=== PATIENT | female | born 1985 | race Caucasian/White ===

== ENCOUNTER 2018-03-31 07:34 | Inpatient (IN) ==
--- NOTE | 2018-03-31 07:56 | PROVIDER DOCUMENTATION ---
HPI-General Adult - General Chief Complaint: Post Op Complaint Stated Complaint: POST OP COMPLAINT Time Seen by Provider: 03/31/18 07:40 Source: patient Allergies/Adverse Reactions: Patient Allergies Allergy/AdvReac Type Severity Reaction Status Date / Time hydromorphone Allergy Intermediate HEADACHE Verified 03/31/18 07:45 oxycodone Allergy Intermediate HEADACHE Verified 03/31/18 07:45 Home Medications: Home Medication List Medication Instructions Recorded Confirmed Last Taken Type Atorvastatin Calcium [Lipitor] 10 mg PO DAILY 01/10/17 01/11/17 01/10/17 07:30 History 10 Cetirizine HCl [Zyrtec] 5 mg PO DAILY 01/10/17 01/11/17 01/10/17 07:30 History 5 Hydrocodone/Acetaminophen [[place] 1 each PO TID PRN PRN #15 tablet 01/10/1701/11 Unknown Rx 7.5-325 Tablet] Montelukast Sodium [Singulair] 10 mg PO DAILY 01/10/17 01/11/17 01/09/17 07:30 History 10 Norgestimate-Ethinyl Estradiol 1 each PO DAILY 01/10/17 01/11/17 01/10/17 07:30 History [Ortho Tri-Cyclen] 1 Omeprazole [Prilosec] 40 mg PO DAILY 01/10/17 01/11/17 01/10/17 07:30 History 40 Ondansetron HCl [Zofran] 4 mg PO TID PRN PRN #15 tablet 01/10/17 01/11/17 Unknown Rx Sulfamethoxazole/Trimethoprim 1 each PO BID #6 tablet 01/10/17 01/11/17 Unknown Rx [Bactrim Ds Tablet] Hydrocodone/APAP 7.5 mg/325 mg 1 ea PO Q6H PRN PRN #20 tab 08/14/17 Unknown Rx [[place]-7.5] Nitrofurantoin Monohyd/M-Cryst 100 mg PO BID #14 cap 08/14/17 Unknown Rx [Macrobid 100 mg Capsule] Tamsulosin [Flomax] 0.4 mg PO QHS #20 cap 08/14/17 Unknown Rx - History of Present Illness -Gen Adult Nature of Presenting Problems: Patient is a 32 year old white female with history of kidney stones requiring lithotripsy and tobacco abuse who is S/P tonsillectomy 2 days ago at [facility] surgery [facility] who presents with generalized weakness,sob, and muscle aching since surgery. Denies fever,dysuria,productive cough, or chest pain. Review of Systems - Adult - REVIEW OF SYSTEMS - ADULT Constitutional: reports: see HPI, fatique. denies: chills, fever Eyes: denies: discharge, blurred vision Ears, Nose, Mouth & Throat: reports: see HPI, other (sore throat due to recent tonsillectomy) Cardiovascular: denies: chest pain Respiratory: reports: see HPI, shortness of breath. denies: cough, excessive sputum production, pleurisy Gastrointestinal: denies: abdominal pain, constipation, diarrhea, vomiting Genitourinary: denies: dysuria Musculoskeletal: reports: see HPI, muscle aches Integumentary: denies: rash Neurological: reports: see HPI. denies: numbness, paresthesia Psychiatric: reports: anxiety Endocrine: reports: no symptoms reported Hematologic/Lymphatic: reports: no symptoms reported Allergic/Immunologic: reports: no symptoms reported All Other Systems: Reviewed and Negative Past History - Adult - PAST MEDICAL HISTORY-ADULT Review of Records: reports: Old Records Reviewed, Nursing Assessment Review, Medications Reviewed, Social history reviewed & non-contributory. Major Childhood Illnesses: reports: denies history Cardiovascular: reports: denies history, hyperlipidemia Respiratory: reports: denies history Gastrointestinal: reports: denies history Genitourinary: reports: kidney stones Musculoskeletal: reports: denies history Neurological: reports: denies history - PRIOR SURGERIES/PROCEDURES Surgical/Procedure History: reports: other (stents placed in kidney) - IMMUNIZATION STATUS Childhood Immunizations: See Nurse Assessment Flu Vaccine: See Nurse Assessment - FAMILY HISTORY Family History: reviewed, not pertinent - SOCIAL HISTORY Smoking: cigarettes, less than 1 pack/day Substance Use: denies Alcohol Use Frequency: occasionally Living Situation: family Physical Exam-General - CONSTITUTIONAL General Appearance: alert, obese, other (no acute distress, ambulatory) - EYES Eyes: other (clear, nonicteric) - HEAD, EARS, NOSE, MOUTH & THROAT HENMT: moist mucous membranes, other (white eschar over posterior pharyns, intact airway, no stridor) - NECK Neck: non-tender, full range of motion, supple - RESPIRATORY Respiratory: lungs clear, no pleuratic chest pain, no respiratory distress, no accessory muscle use - CARDIOVASCULAR Cardiovascular: regular rate, rhythm - GASTROINTESTINAL (ABDOMEN) Abdominal Exam: non tender, soft - LYMPHATIC Lymphatic: no adenopathy - MUSCULOSKELETAL Back Exam: normal inspection, no CVA tenderness Extremity: normal range of motion, tenderness (diffuse muscle tenderness in all extremities), other (no cords, no homans) Peripheral Pulses: radial (R): 2+, radial (L): 2+, dorsalis-pedis (R): 2+, dorsalis-pedis (L): 2+ - SKIN Integumentary: normal color, normal turgor, warm/dry - NEUROLOGIC Neurologic: grossly normal, no motor/sensory deficits - PSYCHIATRIC Psych/Mental Status: anxious Progress - PLAN OF CARE/RESULTS Progress/Plan/Lab Results: Vital Signs - 8 hr 03/31/18 07:36 Temperature 98.3 F Pulse Rate 91 H Respiratory Rate 19 Blood Pressure 132/85 O2 Sat by Pulse Oximetry 93 L Orders Category Date Time Status Urine Preg [ED: Urine Bedside] ORDERED Care 03/31/18 07:54 Active CBC WITH ELECTRONIC DIFF [HEME] Stat Lab 03/31/18 07:54 Ordered CK PROFILE [SP CHEM] Stat Lab 03/31/18 07:54 Ordered CMP [COMPREHENSIVE METABOLIC PANEL] [CHEM] Stat Lab 03/31/18 07:54 Uncollected Result Diagrams: 03/31/18 08:05 03/31/18 08:05 - XRAY 1 XRAY Study: Chest XRAY Interpretation: bilateral infiltrates - CONSULTS/PCP/HOSPITALIST Notification #1 *Consult/PCP/Hospitalist*: DANNIELLE Lynn for Dr. Ocasio Time Discussed: 09:50 Consult Disposition: Admit Departure - Departure Date of Disposition Decision: 03/31/18 Time of Disposition Decision: 09:47 DIAGNOSIS: Bilateral pulmonary infiltrates on chest x-ray Urinary tract infection Qualifiers: Urinary tract infection type: site unspecified Hematuria presence: with hematuria Qualified Code(s): N39.0 - Urinary tract infection, site not specified Leukocytosis Qualifiers: Leukocytosis type: unspecified Qualified Code(s): D72.829 - Elevated white blood cell count, unspecified Pneumonia Qualifiers: Pneumonia type: due to unspecified organism Laterality: bilateral Lung location : unspecified part of lung Qualified Code(s): J18.9 - Pneumonia, unspecified organism Disposition: ADMITTED INPATIENT 09 Certified Medical Emergency: Emergent Condition: Stable Referrals and Follow-Ups: Vivian Chen MD [Primary Care Provider] - - Critical Care Note This patient required my direct & personal management of CC.: No Attestation - Physician/ HANNA Attestation Patient care was provided by Advanced Practice Provider:: No The physician spent face to face time with patient:: Yes Advanced Practice Provider documentation review:: Supervising physician onsite and consulted in the evaluation and care of this patient. The physician did have a face to face encounter with the patient.
[2018-03-31] MEDS ORDERED: DECADRON IM ONE (08:04)
[2018-03-31] MEDS ORDERED: TORADOL IM ONE (08:04)
[2018-03-31] MEDS ORDERED: TORADOL IV ONE (08:06)
[2018-03-31] MEDS ORDERED: DECADRON IV ONE (08:07)
[2018-03-31 08:14] LABS: BASO# 0.03 X1000 (0.0-0.2); BASO% 0.2 % (0.0-0.8); EOS# 0.12 X1000 (0.0-0.7); EOS% 0.7 % (0.0-10.0); HEMATOCRIT 35.9 % (37.0-47.0); HEMOGLOBIN 11.5 g/dL (12.0-16.0); IMM GRAN% 0.6 % (0.0-0.5); LYMPH# 3.27 X1000 (1.2-3.4); LYMPH% 18.3 % (20.5-51.1); MCH 27.3 PG (27-31); MCV 85.1 FL (81-99); MONO# 0.91 X1000 (0.11-0.59); MONO% 5.1 % (1.7-9.3); MPV 10.3 FL (7.4-10.4); NEUT# 13.42 X1000 (1.4-6.5); NEUT% 75.1 % (42.2-75.2); PLT 403 X1000 (130-400); RBC 4.22 XMIL (4.2-5.4); RDW 13.8 % (11.5-14.5); WBC 17.85 X1000 (4.8-10.8)
[2018-03-31 08:34] LABS: AGAP 15; ALB/GLOB RATIO 1.6; ALBUMIN 4.2 g/dL (3.5-5.0); ALKALINE PHOSPHATASE 132 U/L (32-104); BUN 7 mg/dL (8-22); CALCIUM 8.7 mg/dL (8.8-10.2); CHLORIDE 98 mmol/L (98-107); COSMO 272; CREATININE 0.4 mg/dL (0.5-0.9); ESTIMATED GFR > 60; GLUCOSE 111 mg/dL (70-104); GOT 18 U/L (10-30); GPT 19 U/L (10-36); POTASSIUM 4.1 mmol/L (3.5-5.1); SODIUM 137 mmol/L (136-145); TCO2 24 mmol/L (25-35); TOTAL PROTEIN 6.8 g/dL (6.3-8.3)
[2018-03-31 08:53] LABS: CK INDEX 1.6 (0.0-2.5); CK-MB 2.85 ng/mL (0.0-5.0)
[2018-03-31 09:09] LABS: URINE SOURCE CLEAN CATCH
[2018-03-31 09:18] LABS: BILIRUBIN URINE NEGATIVE (NEGATIVE); BLOOD URINE MODERATE (NEGATIVE); COLOR YELLOW; GLUCOSE URINE NEGATIVE (NEGATIVE); KETONE URINE NEGATIVE (NEGATIVE); LEUKOCYTES URINE LARGE (NEGATIVE); NITRITE URINE POSITIVE (NEGATIVE); PROTEIN URINE 30 mg/dL (NEGATIVE); SP GRAVITY URINE 1.026; TURBIDITY URINE HAZY (CLEAR); UROBILINOGEN URINE NORMAL (NORMAL)
[2018-03-31] MEDS ORDERED: ROCEPHIN 1 GM in NS 50 ML IV ONE (09:19)
[2018-03-31 09:21] LABS: UR EPITHELIAL CELLS >10 /HPF (<10); URINE BACTERIA 4+ /HPF; URINE RBC 20-40 /HPF (<10); URINE WBC TNTC /HPF (<10)
[2018-03-31 09:28] LABS: URINE CASTS NONE SEEN
--- NOTE | 2018-03-31 09:45 | Diag Imaging Result Doc PS360 ---
CHEST-2 VIEWS - 03/31/2018 INDICATION: sob COMPARISON: None FINDINGS: Lung volumes are severely low. There are patchy infiltrates and possibly atelectasis in the lung bases bilaterally. Heart size and pulmonary vascularity is normal. IMPRESSION: Severely low lung volumes. Nonspecific patchy infiltrates and/or atelectasis in the lung bases. Electronically signed by Syd Sanders 03/31/2018 9:43 AM
[2018-03-31] MEDS ORDERED: ZITHROMAX 500 MG/NS 500 MG/250 ML IVPB IV ONE (09:54)
[2018-03-31] MEDS ORDERED: DUONEB (A & A) INH PRN (10:30)
[2018-03-31] MEDS ORDERED: VANCOMYCIN IV PER PHARMACY MISC SCH (10:45)
[2018-03-31] MEDS: NS 1,000 ML IV SCH (10:52)
[2018-03-31] MEDS: MAXIPIME 1 GM in NS 50 ML IV SCH ×2 (11:12→22:59)
[2018-03-31] MEDS: ZOFRAN IV PRN ×4 (11:36→22:59)
[2018-03-31] MEDS: PROTONIX IV SCH (11:37)
[2018-03-31] MEDS ORDERED: NORCO-7.5 PO PRN (12:23)
[2018-03-31] MEDS: HYDROCODONE/APAP 7.5-325/15 ML PO SCH ×2 (13:13→18:46)
[2018-03-31] MEDS ORDERED: MORPHINE IV ONE (13:43)
[2018-03-31] MEDS: DUONEB (A & A) INH SCH ×2 (15:39→21:51)
--- NOTE | 2018-03-31 15:52 | Diag Imaging Result Doc PS360 ---
CT RENAL STONE SEARCH - 03/31/2018 INDICATION: R/O kidney stone COMPARISON: 01/15/2017 FINDINGS: There are couple of nonobstructing stones in the left kidney measuring 2 mm. No hydronephrosis or hydroureter. No ureteral stones. Urinary bladder, uterus, ovaries, and rectum are normal. No bowel obstruction or inflammation. Bones are intact. IMPRESSION: Tiny nonobstructing left renal stones. This exam was performed using automated exposure control, adjustment of mA or kV according to patient size, and/or use of iterative reconstruction technique Electronically signed by Syd Sanders 03/31/2018 3:50 PM
[2018-03-31] MEDS: VANCOMYCIN 1,800 MG in NS 250 ML IV SCH (17:20)
[2018-03-31] MEDS: MORPHINE IV PRN ×2 (17:56→20:38)
[2018-03-31] MEDS ORDERED: SODIUM CHLORIDE 0.9% INJ PRN (23:23)
[2018-03-31] MEDS: PHENERGAN IV PRN (23:54)
[2018-04-01] MEDS: VANCOMYCIN 1,800 MG in NS 250 ML IV SCH (03:07)
[2018-04-01] MEDS: NS 1,000 ML IV SCH ×3 (03:07→19:11)
[2018-04-01] MEDS: MORPHINE IV PRN ×5 (03:07→20:45)
[2018-04-01] MEDS: ZOFRAN IV PRN ×3 (03:07→20:47)
[2018-04-01] MEDS: DUONEB (A & A) INH SCH ×4 (03:22→21:43)
--- NOTE | 2018-04-01 03:55 | HISTORY AND PHYSICAL ---
PRIMARY CARE PHYSICIAN: [facility]. CHIEF COMPLAINT: Weakness. Throat pain. HISTORY OF PRESENT ILLNESS: Mrs. Cabrera is a 32-year-old, female with a history of recurrent tonsillitis status post tonsillectomy by Dr. Blakely [id number] on 03/29/2018. After surgery she had typical postoperative pain that was fairly well controlled with pain medication. However, she started to become more weak yesterday. She did have a few episodes of nausea and vomiting and this morning had difficulty getting out of bed because of the weakness and is also more short of breath with a cough. She denies any hemoptysis. No chest pain. She denies any dysuria, diarrhea, or lower extremity edema. In the ER, she was noted to have a white count of 18,000. Chemistry was largely unremarkable. She does have quite a bit of bacteruria, however denies any symptoms. Most interestingly, she has bilateral patchy infiltrates and atelectasis. Given the above, she will need admission for pneumonia. PAST MEDICAL HISTORY: 1. Recurrent tonsillitis status post tonsillectomy on 11/26/[address] Blakely. 2. Recurrent kidney stones and urinary tract infections. Status post multiple lithotripsies. 3. Nicotine dependence. 4. Obesity. PAST SURGICAL HISTORY: Recent tonsillectomy, cervix biopsy, multiple lithotripsies and one cystoscopy with stent placement. SOCIAL HISTORY: She smokes about [id number]-a-day. She has not smoked since surgery. She denies alcohol or drug use. She is a title i teacher. She is . She has no children. FAMILY HISTORY: Both parents are alive. Father has significant coronary artery disease and has had a pacemaker and AICD placed. Mother has no medical problems. REVIEW OF SYSTEMS: A 14 point review of systems obtained and found to be negative with the exception of the HPI. HOME MEDICATIONS: Currently being compiled. ALLERGIES: DILAUDID. OXYCODONE. PHYSICAL EXAM: VITAL SIGNS: Blood pressure 132/85, heart rate 91, respiratory rate 18. O2 saturation 93% on room air. Temperature is 98.3 degrees Fahrenheit. GENERAL: This is an obese, female, lying on hospital bed in no acute distress. NEUROLOGIC: She is awake, alert and oriented. No focal deficits. HEENT: Head: Atraumatic and normocephalic. Eyes: Pupils are equal, round and reactive to light. Oral mucosa is moist. Posterior oropharynx with post surgical eschar to both tonsils. No obvious exudates. No airway compromise. No stridor. NECK: There is no JVD. CHEST: Diminished with faint crackles bilaterally. CARDIOVASCULAR: Regular rate and rhythm. S1, S2 is noted. GASTROINTESTINAL: Soft, nontender, nondistended. Bowel sounds are active. EXTREMITIES: No edema. Pulses are 2+ bilaterally. DIAGNOSTIC DATA: Chest x-ray shows bilateral basilar infiltrates and atelectasis. WBC 17.85, hemoglobin 11.5, hematocrit 35.9 and platelet count 403,000. Sodium 137, potassium 4.1, chloride 98, CO2 24. Anion gap 15. BUN 7, creatinine 0.4, glucose 111, calcium 8.7. AST 18, ALT 19, alkaline phosphatase 132. CK 178. Lactic acid 0.9. UA shows significant bacteruria. IMPRESSION AND PLAN: 1. Pneumonia: We have ordered blood cultures and sputum cultures as well as throat cultures and will increase the spectrum of antibiotics with cefepime with vancomycin. We will continue breathing treatments and aggressive pulmonary toilet. 2. Status post tonsillectomy: Strep, flu and throat cultures have all been ordered. We will continue antibiotics and liquid diet. 3. Asymptomatic bacteruria: While she does not have any symptoms, the antibiotics we are giving her for pneumonia should cover any urinary tract infection adequately. Cultures are pending. 4. Gastroesophageal reflux disease: We have added IV Protonix. 5. Deep venous thrombosis prophylaxis with SCDs given recent surgery. Further recommendations to follow. Dictated by MOO Ferrell for Xavi Sepulveda MD cc: MOO Ferrell MD George H. Godwin, MD
[2018-04-01 05:50] LABS: BASO# 0.03 X1000 (0.0-0.2); BASO% 0.2 % (0.0-0.8); EOS# 0.06 X1000 (0.0-0.7); EOS% 0.4 % (0.0-10.0); HEMATOCRIT 32.7 % (37.0-47.0); HEMOGLOBIN 10.6 g/dL (12.0-16.0); IMM GRAN# 0.07 X1000 (0.0-0.04); IMM GRAN% 0.4 % (0.0-0.5); LYMPH% 24.4 % (20.5-51.1); MCH 27.7 PG (27-31); MCHC 32.4 g/dL (33-37); MCV 85.6 FL (81-99); MONO# 0.86 X1000 (0.11-0.59); MONO% 5.1 % (1.7-9.3); MPV 10.3 FL (7.4-10.4); NEUT% 69.5 % (42.2-75.2); PLT 399 X1000 (130-400); RBC 3.82 XMIL (4.2-5.4); RDW 13.4 % (11.5-14.5); WBC 16.82 X1000 (4.8-10.8)
[2018-04-01 06:26] LABS: AGAP 11; BUN 8 mg/dL (8-22); CHLORIDE 104 mmol/L (98-107); COSMO 278; CREATININE 0.5 mg/dL (0.5-0.9); ESTIMATED GFR > 60; GLUCOSE 102 mg/dL (70-104); POTASSIUM 3.9 mmol/L (3.5-5.1); SODIUM 140 mmol/L (136-145); TCO2 25 mmol/L (25-35)
[2018-04-01] MEDS: HYDROCODONE/APAP 7.5-325/15 ML PO SCH ×3 (08:19→17:17)
[2018-04-01 09:08] LABS: ALB/GLOB RATIO 1.2; ALBUMIN 3.5 g/dL (3.5-5.0); DIRECT BILIRUBIN 0.1 mg/dL (0.00-0.20); TOTAL BILIRUBIN 0.23 mg/dL (0.20-1.00); TOTAL PROTEIN 6.5 g/dL (6.3-8.3)
[2018-04-01] MEDS: SODIUM CHLORIDE 0.9% INJ SCH (10:44)
[2018-04-01] MEDS: PROTONIX IV SCH (10:44)
[2018-04-01] MEDS: MAXIPIME 1 GM in NS 50 ML IV SCH ×2 (10:44→23:40)
--- NOTE | 2018-04-01 11:41 | PROGRESS NOTE ---
DATE: 04/01/2018 SUBJECTIVE: Patient is still complaining of back pain and lower abdominal pain. She is still complaining also of throat pain since she is status post tonsillectomy. She does have a urinary tract infection with a positive culture that showed gram-negative rods. Initially she was placed on vancomycin and cefepime. I will stop the vancomycin, and I will continue with the cefepime given the urine culture results. I will wait for the sensitivity. OBJECTIVE: Vital Signs: Temperature 98.8 degrees, pulse 83, respiratory rate 19, blood pressure 146/93, oxygen saturation 93 on room air. HEENT: Head normocephalic, no trauma. PERRLA. Mouth: She does have scar tissue that is whitish and painful to palpation, some redness around the level of the tonsillar area/throat. Neck: Supple. No JVD. No masses. Central trachea. Chest: Clear to auscultation. No wheezing. No rales. Abdomen: Soft. Mild tenderness to palpation at the level of the suprapubic area. Back: Slightly tender to palpation at the level of the lower back. Extremities: No edema. No clubbing. No cyanosis. Neurological: The patient is alert and oriented x3. No focal deficits. DIAGNOSTIC STUDIES: WBC 16.8, hemoglobin 10.6, hematocrit 32.7, platelets 399,000. Sodium 140, potassium 3.9, chloride 104, bicarbonate 25, BUN 8, creatinine 0.5, glucose 102, calcium 9, AST 13, ALT 16, alkaline phosphatase 116. Lipase level is 12. Albumin 3.5. Urine culture positive for gram-negative rods. ASSESSMENT AND PLAN: 1. Urinary tract infection. As per the patient, she has been having frequency, and the urine has a strong smell. We have a positive culture that showed gram-negative rods. She does not have any burning sensation, though, but she says she is having suprapubic pain and frequency. We will treat it. We did a CT scan yesterday to rule out a kidney stone. That showed tiny nonobstructing left renal stones measuring about 2 mm, but did not show hydronephrosis or hydroureter. 2. Status post tonsillectomy. Streptococcus, flu, and throat culture have been ordered. Everything has been negative so far. 3. Possible right lower lobe pneumonia. I do believe this is more atelectasis than infiltrate. She is not having any respiratory distress or coughing nor has been coughing during my evaluation these 2 days. As per the mother when she does any kind of physical activity, sometimes she is coughing, but not right now. We will continue to monitor. Continue with incentive spirometer. 4. Gastroesophageal reflux disease (GERD). Continue with proton pump inhibitors (PPIs). 5. Deep vein thrombosis (DVT) prophylaxis with sequential compression devices (SCDs) given her recent surgery. 6. Leukocytosis. This patient has a urinary tract infection, and recently she had a tonsillectomy. Also she received some steroids upon admission so probably this is a combination of those 3 factors. Overall, I feel this patient is doing better. I will wait for the final sensitivity. I believe she can be discharged in the next 24 hours with p.o. antibiotics. cc: Xavi Sepulveda MD
[2018-04-01] MEDS: PHENERGAN IV PRN (23:40)
[2018-04-02] MEDS: MORPHINE IV PRN ×3 (00:30→20:49)
[2018-04-02] MEDS: DUONEB (A & A) INH SCH ×4 (03:13→20:59)
[2018-04-02] MEDS: NS 1,000 ML IV SCH ×3 (03:53→18:44)
[2018-04-02] MEDS: PHENERGAN IV PRN ×2 (05:31→20:49)
[2018-04-02 06:12] LABS: BASO# 0.03 X1000 (0.0-0.2); BASO% 0.2 % (0.0-0.8); EOS# 0.13 X1000 (0.0-0.7); HEMATOCRIT 34.8 % (37.0-47.0); IMM GRAN# 0.13 X1000 (0.0-0.04); LYMPH# 3.73 X1000 (1.2-3.4); LYMPH% 29.7 % (20.5-51.1); MCH 27.1 PG (27-31); MCHC 31.6 g/dL (33-37); MCV 85.7 FL (81-99); MONO# 0.63 X1000 (0.11-0.59); MPV 10.3 FL (7.4-10.4); NEUT# 7.93 X1000 (1.4-6.5); NEUT% 63.1 % (42.2-75.2); PLT 380 X1000 (130-400); RBC 4.06 XMIL (4.2-5.4); RDW 13.6 % (11.5-14.5); WBC 12.58 X1000 (4.8-10.8)
[2018-04-02 06:36] LABS: AGAP 12; BUN 7 mg/dL (8-22); CALCIUM 8.4 mg/dL (8.8-10.2); CHLORIDE 102 mmol/L (98-107); COSMO 274; CREATININE 0.5 mg/dL (0.5-0.9); ESTIMATED GFR > 60; GLUCOSE 97 mg/dL (70-104); POTASSIUM 3.9 mmol/L (3.5-5.1); SODIUM 138 mmol/L (136-145); TCO2 24 mmol/L (25-35)
--- NOTE | 2018-04-02 07:59 | Diag Imaging Result Doc PS360 ---
CHEST-PORTABLE - 04/02/2018 INDICATION: Dyspnea COMPARISON: 03/31/2018 FINDINGS: There is moderate worsening in the right basilar infiltrate/atelectasis. Lung volumes remain critically low. There is some hazy infiltrate or atelectasis in the left lung base as well. Stable cardiomegaly and pulmonary vascular congestion. IMPRESSION: Worsening infiltrate or atelectasis in the right lung base. Electronically signed by Syd Sanders 04/02/2018 7:57 AM
[2018-04-02] MEDS: HYDROCODONE/APAP 7.5-325/15 ML PO SCH ×3 (10:00→16:55)
[2018-04-02] MEDS: MAXIPIME 1 GM in NS 50 ML IV SCH ×2 (10:00→20:45)
[2018-04-02] MEDS: PROTONIX IV SCH (10:00)
[2018-04-02] MEDS: SODIUM CHLORIDE 0.9% INJ SCH (10:00)
[2018-04-02] MEDS: ZOFRAN IV PRN ×2 (10:01→13:44)
--- NOTE | 2018-04-02 14:52 | PROGRESS NOTE ---
DATE: 04/02/2018 SUBJECTIVE: Patient reports feeling fine. No sore throat noted. No fever or chills. OBJECTIVE: Vital Signs: Temperature 98.3 degrees, heart rate 94, respiratory rate 16, blood pressure 138/90, O2 saturation 95% on room air. General Examination: This is a 32-year-old female, lying in bed, in no acute distress. Cardiovascular: S1, S2 heard. No murmurs, gallops, or rubs. Regular rate and rhythm. Respiratory: Clear bilaterally to auscultation. No work of breathing or using accessory muscles. Abdomen: Soft, mildly tender to palpation in the suprapubic area. No signs of peritoneal irritation. Bowel sounds present. No organomegaly. Back: In the left lower back, there is questionable CVA tenderness. Extremities: No clubbing, cyanosis, or edema. Peripheral pulses present in both legs. Neurological: Patient alert oriented x3. Moves 4 extremities. DIAGNOSTIC STUDIES: White cell count 12.58, hemoglobin 11.0, hematocrit 34.8, platelets 380,000. Normal BMP. Urine culture is positive for gram-negative rods. ASSESSMENT AND PLAN: 1. Urinary tract infection. Urine culture is still showing gram-negative rods, but the final sensitivity is not back yet. At this point, we will continue with cefepime. The patient reports still mild frequency and suprapubic pain, but definitely getting better. The CT of both kidneys shows tiny nonobstructing stones of 2 mm. I asked patient if she wants to be seen by a urologist here, considering her recurring history of kidney stones, or if she prefers to be seen as an outpatient. She preferred outpatient visit. We will continue with the same management. 2. Right lower lobe pneumonia that was confirmed with the x-ray from today. We will continue with cefepime that is treating this infection. White cell count is getting better. We will continue with the same management. She is not requiring any oxygen supplementation. 3. Gastroesophageal reflux disease. Patient is on Protonix. We will continue with the same management. DISPOSITION: I think if we are able to have the final results of urine culture tomorrow, then we can discharge this patient home. cc: Erick Vance MD
[2018-04-03] MEDS: PHENERGAN IV PRN (00:42)
[2018-04-03] MEDS: MORPHINE IV PRN ×5 (00:43→20:42)
[2018-04-03] MEDS: MAXIPIME 1 GM in NS 50 ML IV SCH ×2 (01:57→10:24)
[2018-04-03] MEDS: DUONEB (A & A) INH SCH ×4 (03:15→20:02)
[2018-04-03] MEDS: ZOFRAN IV PRN ×2 (05:47→20:43)
[2018-04-03 06:14] LABS: BASO# 0.03 X1000 (0.0-0.2); BASO% 0.3 % (0.0-0.8); EOS# 0.24 X1000 (0.0-0.7); HEMATOCRIT 35.2 % (37.0-47.0); IMM GRAN# 0.15 X1000 (0.0-0.04); IMM GRAN% 1.3 % (0.0-0.5); LYMPH# 3.64 X1000 (1.2-3.4); LYMPH% 30.7 % (20.5-51.1); MCH 27.2 PG (27-31); MCHC 31.3 g/dL (33-37); MCV 86.9 FL (81-99); MONO# 0.59 X1000 (0.11-0.59); MPV 10.1 FL (7.4-10.4); NEUT% 60.7 % (42.2-75.2); PLT 382 X1000 (130-400); RBC 4.05 XMIL (4.2-5.4); RDW 13.5 % (11.5-14.5); WBC 11.85 X1000 (4.8-10.8)
[2018-04-03 06:46] LABS: AGAP 12; BUN 10 mg/dL (8-22); CALCIUM 7.7 mg/dL (8.8-10.2); CHLORIDE 104 mmol/L (98-107); COSMO 277; CREATININE 0.5 mg/dL (0.5-0.9); ESTIMATED GFR > 60; GLUCOSE 100 mg/dL (70-104); POTASSIUM 4.2 mmol/L (3.5-5.1); SODIUM 139 mmol/L (136-145); TCO2 23 mmol/L (25-35)
--- NOTE | 2018-04-03 07:26 | Diag Imaging Result Doc PS360 ---
EXAM: CHEST-PORTABLE 04/03/2018 HISTORY: Dyspnea TECHNIQUE: AP portable at 0627 COMMENT: There is bilateral platelike atelectasis particularly over the right lower lobe. There is slightly better pneumatization of the right lower lobe than on 04/02/2018. The lungs are less well-expanded than on 03/31/2018. IMPRESSION: Bilateral subsegmental atelectasis. Electronically signed by Philippe Treadwell 04/03/2018 7:23 AM
[2018-04-03] MEDS: NS 1,000 ML IV SCH (07:45)
[2018-04-03] MEDS: HYDROCODONE/APAP 7.5-325/15 ML PO SCH ×3 (09:15→17:45)
[2018-04-03] MEDS: SODIUM CHLORIDE 0.9% INJ SCH (10:25)
[2018-04-03] MEDS: PROTONIX IV SCH (10:25)
--- NOTE | 2018-04-03 14:29 | PROGRESS NOTE ---
DATE: 04/03/2018 SUBJECTIVE: Patient reports feeling fine although she reports some intermittent pain in the lower back. OBJECTIVE: Vital Signs: Temperature 98.6 degrees, heart rate 82, respiratory rate 16, blood pressure 126/90, and O2 saturation 94% on room air. General: This is a 32-year-old female lying in bed in no acute distress. Cardiovascular: S1, S2 heard. No murmurs, gallops, or rubs. Regular rate and rhythm. Respiratory: Clear bilaterally to auscultation. No work of breathing or using accessory muscles. Abdomen: Soft and nontender to palpation. Bowel sounds present. No organomegaly. Extremities: No clubbing, cyanosis, or edema. Peripheral pulses present in both legs. Genitourinary: Questionable CVA tenderness on the left side. Neurological: Patient is alert and oriented x3. Moves all 4 extremities. LABORATORY DATA: White cell count is 11.95. Hemoglobin 11, hematocrit 35.2, and platelets 382,000 with normal BMP. ASSESSMENT AND PLAN: 1. Urinary tract infection. Urine culture is still pending. I checked with labs today, and they mentioned that there is a possibility that the bacteria that is in the culture could be ESBL E. Coli. They are going to recheck it, and we will have the results of that culture tomorrow. In the meantime considering that possibility, I will change cefepime for ertapenem. If positive, we will order another urine culture and consult ID. 2. Right lower lobe pneumonia. Patient is still having some cough but getting better. No shortness of breath reported. She is not requiring any oxygen supplementation. At this point, we will continue with these new medication ertapenem. 3. Gastroesophageal reflux disease. We will continue with Protonix. 4. Disposition. We will see what the final blood culture shows, and we will go from there. cc: Erick Vance MD
[2018-04-03] MEDS: INVANZ 1 GM/NS 1 GM/50 ML IVPB IV SCH (16:19)
[2018-04-04] MEDS: MORPHINE IV PRN ×5 (00:45→20:15)
[2018-04-04] MEDS: ZOFRAN IV PRN ×3 (00:45→20:15)
[2018-04-04] MEDS: NS 1,000 ML IV SCH ×2 (02:25→20:15)
[2018-04-04] MEDS: DUONEB (A & A) INH SCH ×4 (04:41→21:35)
--- NOTE | 2018-04-04 07:21 | Diag Imaging Result Doc PS360 ---
EXAM: CHEST-PORTABLE INDICATION: Dyspnea TECHNIQUE: One view COMPARISON: 04/03/2018 FINDINGS: Inspiration is suboptimal. The platelike atelectasis at the lung bases seen on the previous study is approximately stable. No new consolidation is identified. Cardiac silhouette is stable. IMPRESSION: Stable chest. Electronically signed by Zack Jason 04/04/2018 7:19 AM
[2018-04-04 07:45] LABS: AGAP 9; BUN 8 mg/dL (8-22); CALCIUM 8.9 mg/dL (8.8-10.2); CHLORIDE 102 mmol/L (98-107); COSMO 272; CREATININE 0.4 mg/dL (0.5-0.9); ESTIMATED GFR > 60; GLUCOSE 101 mg/dL (70-104); POTASSIUM 4.2 mmol/L (3.5-5.1); SODIUM 137 mmol/L (136-145); TCO2 26 mmol/L (25-35)
[2018-04-04] MEDS: HYDROCODONE/APAP 7.5-325/15 ML PO SCH ×3 (09:43→17:03)
[2018-04-04] MEDS: PROTONIX IV SCH (10:40)
--- NOTE | 2018-04-04 14:25 | PROGRESS NOTE ---
DATE: 04/04/2018 SUBJECTIVE: Patient reports feeling fine. Reports still some mild cough. No other complaints noted. OBJECTIVE: Vital Signs: Temperature 98.3 degrees, heart rate 81, respiratory rate 20, blood pressure 122/76, O2 saturation 96% on room air. General Examination: This is a 32-year-old female lying in bed, in no acute distress. HEENT: Head is normocephalic and atraumatic. Anicteric sclerae. Pale conjunctivae. Mucous membranes moist. Neck: No JVD noted. No carotid bruits. No lymphadenopathy. No thyromegaly. Cardiovascular: S2 heard. No murmurs, gallops, or rubs. Regular rate and rhythm. Respiratory: Clear bilaterally to auscultation. No work of breathing or using accessory muscles. Abdomen: Soft. Nontender to palpation. Bowel sounds present. No organomegaly. Extremities: No clubbing, cyanosis, or edema. Peripheral pulses present in both legs. Genitourinary: CVA tenderness on the left side is better. Neurological: Patient is alert and oriented x3. Moves 4 extremities. LABORATORY DATA: Reviewed. ASSESSMENT AND PLAN: 1. Extended spectrum beta lactamase Escherichia coli urinary tract infection. I talked with [facility] and they informed me that the culture revealed ESBL E. coli but they are going to recheck it today. But considering this resolved, we are going to call Infectious Disease, we are going to put in an order for a PICC line, and will go from there. 2. Right lower lobe pneumonia. We will continue with ertapenem. Cough is getting slowly better. We will continue with the same management. 3. Gastroesophageal reflux disease. We will continue with Protonix. 4. Disposition. ID has been consulted. We will see what they have to say. cc: Erick Vance MD
[2018-04-04 14:56] LABS: INR 0.92; PROTIME 13.2 Seconds (11.0-16.0)
[2018-04-04] MEDS: INVANZ 1 GM/NS 1 GM/50 ML IVPB IV SCH (15:09)
--- NOTE | 2018-04-04 17:04 | INFECTIOUS DISEASE CONSULT REP ---
DATE: 04/04/2018 CONCLUSION: The patient has an extended-spectrum beta lactamase producing Escherichia coli urinary tract infection which is symptomatic. In addition, the patient has had many other infections, including pneumonia, tonsillitis, and sinusitis, and in fact, she just had her tonsils removed because they were so diseased. Because of this, I think the patient could have an immunoglobulin deficiency as well. RECOMMENDATIONS: I agree with Dr. Mayorga starting the patient on ertapenem, and I have ordered immunoglobulin levels. DISCUSSION: The patient approximately 5 days ago had the onset of dysuria, fever and chills, back and flank pain. Also her urine was noted to be darker and had an odor to it. The patient also has been coughing and produced a light green-colored sputum. She has had a decrease in her stool output, which she thinks is due the fact that she was not eating much because she was sick. Patient also tells me that she was unable to move her extremities for a couple days when after she got ill. DIAGNOSTIC STUDIES: Her laboratory studies show a CBC with a white count of 11,850, hemoglobin 11, and platelet count 382,000. Creatinine is 0.4, GFR is greater than 60. Liver function studies were normal. test was negative. Urinalysis showed white cells and bacteria. The legionnaires and pneumococcal antigens were negative. Blood cultures were negative. Urine is growing an extended-spectrum beta lactamase producing E coli. The sputum grew a normal prachi. Chest x-ray initially showed bibasilar atelectasis versus pneumonia but all recent x-rays have said that there was just bibasilar atelectasis and no pneumonia. Throat culture and rapid test for Streptococcus were negative. Renal CT scan showed small stones, but none of them were obstructing. The patient's test was negative. OBSTETRICAL/GYNECOLOGICAL HISTORY: She is a 1, para 0, AB1. She had a menstrual period 2 weeks ago. Her test is negative. REVIEW OF SYSTEMS: Eyes and Ears: She can see and hear okay. Neck: No stiffness. Respiratory: The patient has had a cough productive of a green sputum. See Present Illness. Genitourinary: See Present Illness. Gastrointestinal: See Present Illness. Neurological: No seizures. Integument: No rash. PREVIOUS HOSPITALIZATIONS AND OPERATIONS: She has had a miscarriage. Lithotripsy for renal calculi. The patient also had a urethral stent placed. She has had sinus surgery. She has had fibroids removed from her uterus. She has had cyst removed from her ovary. She has also had surgery on her cervix, and finally the patient has had an appendectomy. MEDICAL DISEASES: Positive for obesity and gastroesophageal reflux disease. INFECTIOUS DISEASE HISTORY: Positive for pneumonia, tonsillitis, sinusitis. FAMILY HISTORY: Positive for diabetes mellitus and myocardial infarction. SOCIAL HISTORY: The patient is . She has a cat as a pet. She does not smoke cigarettes, drink alcoholic beverages, or abuse drugs. ALLERGIES: She is allergic to Dilaudid and oxycodone. HOME MEDICATIONS: Include Zyrtec, hydrocodone, Singulair, Ortho Tri-Cyclen, omeprazole, and Zofran. PHYSICAL EXAMINATION: Vital Signs: Temperature is 98.3 degrees, pulse 81, respirations 20, blood pressure is 122/76. General: This is an obese young female. She is in no acute distress. Head, eyes, ears, nose, and throat: She can hear my spoken words and see near objects. There is no drainage coming from her nose or ears. In the back of her throat where she had her tonsils, there appeared to be some purulent lining to where the tonsils were. Neck: No meningismus. Lungs: Clear to auscultation. Cardiovascular: Heart rate is regular. Abdomen: Soft and nontender. Neurologic: The patient is awake. She can move her extremities. There is no tremor. Her sensation is intact to touch. Her memory as regarding her medical history is intact. Thank you for the consult. cc: Chencho Jim MD
[2018-04-05] MEDS: MORPHINE IV PRN ×3 (01:02→12:08)
[2018-04-05] MEDS: PHENERGAN IV PRN (01:08)
[2018-04-05] MEDS: DUONEB (A & A) INH SCH ×3 (03:35→16:05)
--- NOTE | 2018-04-05 06:40 | Diag Imaging Result Doc PS360 ---
EXAM: CHEST-PORTABLE HISTORY: Dyspnea TECHNIQUE: Portable chest single view COMPARISON: 04/04/2018 FINDINGS: Poor inspiratory effort similar to the prior study. There are basilar infiltrates and/or atelectasis. Findings are slightly improved in the right lung base. Heart remains borderline mildly prominent with mild central vascular distention. IMPRESSION: Slight interval improvement. Electronically signed by Danish Jung 04/05/2018 6:38 AM
[2018-04-05 07:12] LABS: BASO# 0.02 X1000 (0.0-0.2); BASO% 0.2 % (0.0-0.8); EOS# 0.22 X1000 (0.0-0.7); HEMATOCRIT 35.8 % (37.0-47.0); HEMOGLOBIN 11.3 g/dL (12.0-16.0); IMM GRAN# 0.13 X1000 (0.0-0.04); IMM GRAN% 1.2 % (0.0-0.5); LYMPH# 3.45 X1000 (1.2-3.4); LYMPH% 31.7 % (20.5-51.1); MCH 27.2 PG (27-31); MCHC 31.6 g/dL (33-37); MCV 86.1 FL (81-99); MONO# 0.53 X1000 (0.11-0.59); MONO% 4.9 % (1.7-9.3); MPV 10.1 FL (7.4-10.4); NEUT# 6.54 X1000 (1.4-6.5); PLT 367 X1000 (130-400); RBC 4.16 XMIL (4.2-5.4); RDW 13.3 % (11.5-14.5); WBC 10.89 X1000 (4.8-10.8)
[2018-04-05 07:33] LABS: AGAP 11; BUN 5 mg/dL (8-22); CHLORIDE 103 mmol/L (98-107); COSMO 275; CREATININE 0.4 mg/dL (0.5-0.9); ESTIMATED GFR > 60; GLUCOSE 99 mg/dL (70-104); SODIUM 139 mmol/L (136-145); TCO2 25 mmol/L (25-35)
[2018-04-05] MEDS: PROTONIX IV SCH (09:53)
[2018-04-05] MEDS: HYDROCODONE/APAP 7.5-325/15 ML PO SCH ×2 (09:54→15:40)
[2018-04-05 12:04] LABS: INR 0.91; PROTIME 13.1 Seconds (11.0-16.0)
[2018-04-05] MEDS ORDERED: NS 250 ML ONE (13:44)
[2018-04-05] MEDS: NS 1,000 ML IV SCH (13:54)
--- NOTE | 2018-04-05 15:07 | INFECTIOUS DISEASE PROGRESS NO ---
DATE: 04/05/2018 PRESENT ILLNESS: The patient has an extended spectrum beta lactamase producing E coli urinary tract infection which is symptomatic. The patient also has had many other infections and I felt that she may have an immunoglobulin deficiency. MEDICATIONS: The patient is on ertapenem and she will be going home on that antibiotic as well. PHYSICAL EXAMINATION: Vital Signs: Patient's temperature is 98.6 degrees, pulse 75, respirations 17, blood pressure 124/79. General: This is a obese young female. She is in no acute distress. Head/eyes/ears/nose/throat: She can hear my spoken words and see near objects. There is no drainage from the nose or ears. Neck: No meningismus. Lungs: Clear to auscultation. Cardiovascular: Heart rate is regular. Abdomen: Soft and nontender. Neurologic: The patient is awake. She can move her extremities. There is no tremor. Integument: No rash noted. LAB AND X-RAY: The patient's CBC today has a white count of 8930, hemoglobin 12.6, and platelet count 315,000. Creatinine 0.9. GFR is greater than 60. The patient's IgG level is 693. The IgA level is 129. ASSESSMENT AND PLAN: Patient has an extended spectrum beta lactamase producing Escherichia coli urinary tract infection. My plan is to treat it with ertapenem 1 g IV daily for 2 weeks. I have requested that the patient come back to my office for return appointment in 2 weeks. As regarding her immunoglobulin levels, the IgG level is so close to normal, which starts at 700, that I do not think it is significant the level she has at 693 and also I do not think that level merits having intravenous immunoglobulin infusions. COMORBIDITIES: The patient does not really have a comorbidity causing her to get these infections except for the fact that she has had recurrence of a lot of infections. cc: Chencho Jim MD
[2018-04-05] MEDS: INVANZ 1 GM/NS 1 GM/50 ML IVPB IV SCH (15:22)
[2018-04-05 15:31] VITALS: BP 136/87
--- NOTE | 2018-04-05 17:38 | DISCHARGE SUMMARY ---
ADMISSION DATE: 03/31/2018 DISCHARGE DATE: 04/05/2018 ADMISSION DIAGNOSES: 1. Pneumonia 2. Status post tonsillectomy. 3. Asymptomatic bacteruria. 4. Gastroesophageal reflux disease. DISCHARGE DIAGNOSES: 1. Vbmlqouw-kpxrahyq-xhsx-lactamase Escherichia coli urinary tract infection . 2. Right lower lobe pneumonia. 3. Gastroesophageal reflux disease. 4. Immunoglobulin deficiency. CONSULTATIONS: Dr. Beni Jim with Infectious Disease, PICC line placement. SURGERIES/PROCEDURES: .None. HOSPITAL COURSE: On 03/31/2018, Ms. Aylin Cabrera, a 32-year-old female, presented with recurrent tonsillitis status post tonsillectomy by Dr. Blakely 2 days prior to admission. After surgery, she had typical postop pain and did fairly well with pain medication management, but became weak 2 days after the surgery. She had a few episodes of nausea and vomiting the morning of admission and became more short of breath with a cough. She had a white count of 18,000. Had bacteruria but denied symptoms. She was admitted for pneumonia and further treatment. Cultures were obtained and grew out E coli, ESBL positive, in the urine. Negative for strep. Only normal prachi in the sputum culture, and she was negative for the flu. The urine fully resulted on the . Dr. Jim was consulted on the , and ertapenem was continued. Also, Dr. Jim ordered immunoglobulin levels as well. Vital signs remained stable throughout the stay. Her white blood cell count dropped to as low as 10,000. She is afebrile. No other complaints. IgG was in fact low. She had placement of a PICC line for 2 weeks of IV Invanz, and will follow up with Dr. Jim as an outpatient. DISCHARGE PHYSICAL EXAMINATION: VITAL SIGNS: Temperature 98.9, heart rate 90, respiratory rate 20, blood pressure 148/89, O2 saturation 94% on room air. DISCHARGE LABORATORY DATA: White blood cells 10,000, hemoglobin 11, hematocrit 35, platelet count 367. INR 0.91. Sodium 139, potassium 4.0, BUN 5, creatinine 0.4, glucose 99. IgG level low at 693. PERTINENT IMAGING: Chest x-ray on 03/31/2018: Low lung volumes, nonspecific patchy infiltrates and/or atelectasis in the lung bases. Renal CT on same day: Tiny nonobstructive left renal stone. Chest x-ray on 04/05/2018 shows slight interval improvement. DISCHARGE MEDICATIONS: 1. New medication: Invanz IV for 2 weeks per PICC line. 2. Zyrtec 5 mg p.o. daily. 3. Singulair 10 mg p.o. daily. 4. Ortho Tri-Cyclen 1 p.o. daily. 5. Prilosec 40 mg p.o. daily. 6. [place] 10,1 tab p.o. every 4 hours p.r.n. 7. Zofran 4 mg p.o. t.i.d. p.r.n. DISCHARGE DIET: Clear liquid, advance as tolerated. DISCHARGE ACTIVITY: As tolerated. DISCHARGE FOLLOWUP: Physician followup with Dr. Beni Jim in 2 weeks. DISCHARGE INSTRUCTIONS: If symptoms worsening, seek medical attention. DISCHARGE DISPOSITION: Home with infusion, [place]. Dictated by MOO Lamas for Erick Vance MD Addendum: Patient seen and examined by myself. Agree with MOO note. It reflects my assessment and plan. Patient is being discharged in stable condition with IV antibiotics at home. Will be seen by Dr. Jim in the office in 2 weeks. cc: MOO Lamas MD [facility] CENTERRenea
== END 2018-04-05 16:27 | disposition home or self-care (01) | DRG 194 ==
LOC: ED 07:34 → SUATTDRO 07:35 → 4N 07:35
PROVIDERS: ATTEND Internal Medicine
CPT/HCPCS: 36569; 71010; 71020; 71045; 71046; 74176; 80048; 80053; 80076; 81001; 81025; 82550; 82553; 82784; 83605; 83690; 85025; 85610; 87040; 87070; 87077; 87081; 87088; 87186; 87205; 87275; 87276; 87430; 87449; 87804; 87899; 89220; 94640; 94761; 94799; 96365; 96367; 96375; 99285; A9270; C9113; J0456; J0692; J0696; J1100; J1335; J1885; J2270; J2405; J2550; J3370; J7030; J7050; S0164